=== PATIENT | female | born 1985 | race Caucasian/White ===

== ENCOUNTER 2016-06-07 08:41 | Outpatient (CLI) | payer OTHER | END 2016-06-07 20:04 | disposition home or self-care (01) | LOC: SDS 08:41 | PROVIDERS: ATTEND Internal Medicine | DX: S99.912A Unspecified injury of left ankle, initial encounter (principal); X58.XXXA Exposure to other specified factors, initial encounter; Y93.89 Activity, other specified; Y92.89 Other specified places as the place of occurrence of the external cause; Y99.8 Other external cause status ==

== ENCOUNTER 2017-03-14 09:51 | Outpatient (CLI) | payer OTHER ==
[2017-03-14 10:39] LABS: BASOPHILS % (AUTO) 0.4 % (0.0-2.0); EOSINOPHILS # (AUTO) 0.1 K/uL (0.0-0.4); EOSINOPHILS % (AUTO) 1.6 % (0.0-4.0); HEMATOCRIT 42.9 % (36-48); LYMPHOCYTES # (AUTO) 1.7 K/uL (1.0-5.5); LYMPHOCYTES % (AUTO) 26.6 % (20.5-51.5); MEAN CORPUSCULAR HEMOGLOBIN 29 pg (27-31); MEAN CORPUSCULAR HGB CONC 33 % (32-36); MEAN CORPUSCULAR VOLUME 88 fL (79.0-98.0); MONOCYTES # (AUTO) 0.3 K/uL (0.0-1.0); MONOCYTES % (AUTO) 4.9 % (1.7-9.3); NEUTROPHILS # (AUTO) 4.2 K/uL (1.8-7.7); NEUTROPHILS % (AUTO) 66.5 % (40.0-70.0); PLATELET COUNT (AUTO) 460 K/uL (130-430); RED CELL DISTRIBUTION WIDTH 11.8 % (9.0-15.0); WHITE BLOOD COUNT (AUTO) 6.3 K/uL (4.8-10.8)
[2017-03-14 10:51] LABS: INR 0.9 (0.8-1.2); PROTHROMBIN TIME 9.5 SECS (9.5-12.5)
[2017-03-14 11:03] LABS: CALCIUM 9.8 mg/dL (8.4-11.0); CREATININE 0.46 mg/dL (0.55-1.30); POTASSIUM 3.5 mmol/L (3.5-5.1); TOTAL BILIRUBIN 0.7 mg/dL (0.0-1.0)
== END 2017-03-14 20:19 | disposition home or self-care (01) ==
LOC: SUS 09:51
PROVIDERS: ATTEND Internal Medicine
DX: N93.9 Abnormal uterine and vaginal bleeding, unspecified (principal); R93.8 Abnormal findings on diagnostic imaging of other specified body structures
CPT/HCPCS: 36415; 76830-TC; 76857; 80053; 84703; 85025; 85610-TC

== ENCOUNTER 2017-09-29 08:32 | Outpatient (CLI) | payer OTHER ==
[2017-09-29 09:17] LABS: BILIRUBIN,URINE NEGATIVE (NEGATIVE); BLOOD, URINE 2+ (NEGATIVE); CLARITY/URINE CLEAR (CLEAR); COLOR,URINE YELLOW (YELLOW); GLUCOSE,URINE NEGATIVE (NEGATIVE); KETONES,URINE NEGATIVE (NEGATIVE); LEUKOCYTE ESTERASE ,URINE TRACE (NEGATIVE); NITRITE, URINE NEGATIVE (NEGATIVE); PH,URINE 5.5 (5.0-8.0); PROTEIN URINE NEGATIVE (NEGATIVE); UROBILINOGEN,URINE 0.2 (0.2-1.0)
[2017-09-29 09:24] LABS: CALCIUM 8.9 mg/dL (8.4-11.0); CREATININE 0.67 mg/dL (0.55-1.30); POTASSIUM 3.9 mmol/L (3.5-5.1)
[2017-09-29 09:30] LABS: BASOPHILS % (AUTO) 0.6 % (0.0-2.0); EOSINOPHILS # (AUTO) 0.2 K/uL (0.0-0.4); EOSINOPHILS % (AUTO) 2.4 % (0.0-4.0); HEMATOCRIT 40.3 % (36-48); HEMOGLOBIN 13.3 g/dL (12.0-16.0); MEAN CORPUSCULAR HEMOGLOBIN 29 pg (27-31); MEAN CORPUSCULAR HGB CONC 33 % (32-36); MEAN CORPUSCULAR VOLUME 87 fL (79.0-98.0); MONOCYTES # (AUTO) 0.4 K/uL (0.0-1.0); MONOCYTES % (AUTO) 5.8 % (1.7-9.3); NEUTROPHILS # (AUTO) 5.1 K/uL (1.8-7.7); NEUTROPHILS % (AUTO) 65.2 % (40.0-70.0); PLATELET COUNT (AUTO) 451 K/uL (130-430); RED BLOOD CELL COUNT(AUTO) 4.67 MIL/uL (4.2-6.2); WHITE BLOOD COUNT (AUTO) 7.7 K/uL (4.8-10.8)
[2017-09-29 09:38] LABS: ALBUMIN 3.6 g/dL (3.4-4.8); THYROID STIMULATING HORMONE 1.31 uIu/mL (0.34-4.82); TOTAL BILIRUBIN 0.6 mg/dL (0.0-1.0)
[2017-09-29 09:40] LABS: BACTERIA,URINE MODERATE /HPF (None Seen)
[2017-09-29 09:41] LABS: MUCUS,URINE 1+ /LPF (None Seen); YEAST,URINE None Seen /HPF (None Seen)
[2017-09-30 08:11] LABS: HEMOGLOBIN A1C 5.4 % (4.8-5.6)
== END 2017-09-29 19:40 | disposition home or self-care (01) ==
LOC: SLB 08:32
PROVIDERS: ATTEND Obstetrics & Gynecology
DX: Z00.00 Encounter for general adult medical examination without abnormal findings (principal)
CPT/HCPCS: 36415; 80053; 80061; 81000-TC; 82306; 82607; 83036; 84443-TC; 84702-TC; 85025; 87086

== ENCOUNTER 2017-10-02 08:19 | Outpatient (CLI) | payer OTHER ==
[2017-10-03 08:10] LABS: HEPATITIS A AB, IgM Negative (Negative); HEPATITIS B CORE AB, IgM Negative (Negative); HEPATITIS B SURFACE AG Negative (Negative)
== END 2017-10-02 20:42 | disposition home or self-care (01) ==
LOC: SUS 08:19
PROVIDERS: ATTEND Internal Medicine
DX: R16.0 Hepatomegaly, not elsewhere classified (principal)
CPT/HCPCS: 36415; 76700-TC; 80074

== ENCOUNTER 2019-08-09 00:50 | Emergency (ER) | payer OTHER ==
[~2019-08-09] VITALS: Ht 170.2 cm; Wt 99.3 kg
[2019-08-09 00:59] VITALS: BP_SYST 141
[2019-08-09] MEDS ORDERED: MECLIZINE HCL 25 MG TABLET (ANITVERT) PO ONE (02:00)
[2019-08-09 03:31] LABS: BASOPHILS % (AUTO) 0.2 % (0.0-2.0); EOSINOPHILS % (AUTO) 0.3 % (0.0-4.0); HEMATOCRIT 40.4 % (36-48); HEMOGLOBIN 13.3 g/dL (12.0-16.0); LYMPHOCYTES # (AUTO) 1.5 K/uL (1.0-5.5); LYMPHOCYTES % (AUTO) 15.9 % (20.5-51.5); MEAN CORPUSCULAR HEMOGLOBIN 28 pg (27-31); MEAN CORPUSCULAR HGB CONC 33 % (32-36); MEAN CORPUSCULAR VOLUME 84 fL (79.0-98.0); MONOCYTES # (AUTO) 0.4 K/uL (0.0-1.0); MONOCYTES % (AUTO) 4.3 % (1.7-9.3); NEUTROPHILS # (AUTO) 7.5 K/uL (1.8-7.7); NEUTROPHILS % (AUTO) 79.3 % (40.0-70.0); PLATELET COUNT (AUTO) 455 K/uL (130-430); RED CELL DISTRIBUTION WIDTH 13.4 % (9.0-15.0); WHITE BLOOD COUNT (AUTO) 9.4 K/uL (4.8-10.8)
[2019-08-09 03:37] LABS: CALCIUM 8.9 mg/dL (8.4-11.0); CREATININE 0.74 mg/dL (0.55-1.30); POTASSIUM 3.8 mmol/L (3.5-5.1)
[2019-08-09 03:48] LABS: TOTAL BILIRUBIN 0.3 mg/dL (0.0-1.0)
[2019-08-09 04:11] VITALS: BP_SYST 138
== END 2019-08-09 04:11 | disposition home or self-care (01) ==
LOC: SED 00:50
DX: R55 Syncope and collapse (principal)
CPT/HCPCS: 36415; 80053; 84702; 85025; 93005; 99284; J8597

== ENCOUNTER 2019-10-11 10:02 | Outpatient (CLI) | payer OTHER ==
--- NOTE | 2019-10-14 08:23 | NUR ---
Patient was called by [facility] to notify her COVID-19 "Detected" results and instructed to follow the Home Isolation Instructions. Patient verbalizes understanding.
== END 2019-10-12 19:06 | disposition home or self-care (01) ==
LOC: SLB 10:02
PROVIDERS: ATTEND Internal Medicine
DX: U07.1 COVID-19 (principal)
CPT/HCPCS: U0003-CS

== ENCOUNTER 2019-10-23 13:39 | Outpatient (CLI) | payer OTHER, SELFPAY ==
--- NOTE | 2019-10-25 10:37 | NUR ---
Covid results Patient called to request covid results- ID [id number]- results are positive, pt verbalized complete understanding.
== END 2019-10-23 15:41 | disposition home or self-care (01) ==
LOC: SLB 13:39
PROVIDERS: ATTEND Internal Medicine
DX: Z20.828 Contact with and (suspected) exposure to other viral communicable diseases (principal)
CPT/HCPCS: C9803; U0003

== ENCOUNTER 2020-01-22 09:13 | Outpatient (CLI) | payer OTHER ==
[2020-01-22 10:07] LABS: BASOPHILS # (AUTO) 0.1 K/uL (0.0-0.2); BASOPHILS % (AUTO) 0.5 % (0.0-2.0); EOSINOPHILS # (AUTO) 0.2 K/uL (0.0-0.4); EOSINOPHILS % (AUTO) 1.5 % (0.0-4.0); HEMATOCRIT 40.3 % (36-48); LYMPHOCYTES # (AUTO) 1.5 K/uL (1.0-5.5); LYMPHOCYTES % (AUTO) 13.3 % (20.5-51.5); MEAN CORPUSCULAR HEMOGLOBIN 27 pg (27-31); MEAN CORPUSCULAR HGB CONC 32 % (32-36); MEAN CORPUSCULAR VOLUME 83 fL (79.0-98.0); MONOCYTES # (AUTO) 0.5 K/uL (0.0-1.0); MONOCYTES % (AUTO) 4.1 % (1.7-9.3); NEUTROPHILS # (AUTO) 9.3 K/uL (1.8-7.7); NEUTROPHILS % (AUTO) 80.6 % (40.0-70.0); PLATELET COUNT (AUTO) 442 K/uL (130-430); RED BLOOD CELL COUNT(AUTO) 4.84 MIL/uL (4.2-6.2); RED CELL DISTRIBUTION WIDTH 15.4 % (9.0-15.0); WHITE BLOOD COUNT (AUTO) 11.5 K/uL (4.8-10.8)
[2020-01-22 10:52] LABS: ALBUMIN 3.4 g/dL (3.4-4.8); CALCIUM 9.1 mg/dL (8.4-11.0); CREATININE 0.61 mg/dL (0.55-1.30); TOTAL BILIRUBIN 0.5 mg/dL (0.0-1.0)
[2020-01-22 10:53] LABS: POTASSIUM 3.9 mmol/L (3.5-5.1)
[2020-01-22 10:55] LABS: THYROID STIMULATING HORMONE 1.27 uIu/mL (0.36-3.74)
== END 2020-01-22 21:17 | disposition home or self-care (01) ==
LOC: SLB 09:13
PROVIDERS: ATTEND Internal Medicine
DX: E78.5 Hyperlipidemia, unspecified (principal)
CPT/HCPCS: 36415; 80053; 84443-TC; 84703; 85025

== ENCOUNTER 2020-08-11 12:58 | Outpatient (CLI) | payer OTHER ==
[2020-08-11 13:38] LABS: BASOPHILS % (AUTO) 0.3 % (0.0-2.0); EOSINOPHILS # (AUTO) 0.1 K/uL (0.0-0.4); EOSINOPHILS % (AUTO) 1.6 % (0.0-4.0); HEMATOCRIT 41.7 % (36-48); HEMOGLOBIN 13.9 g/dL (12.0-16.0); LYMPHOCYTES # (AUTO) 3.1 K/uL (1.0-5.5); LYMPHOCYTES % (AUTO) 43.6 % (20.5-51.5); MEAN CORPUSCULAR HEMOGLOBIN 28 pg (27-31); MEAN CORPUSCULAR HGB CONC 33 % (32-36); MEAN CORPUSCULAR VOLUME 84 fL (79.0-98.0); MONOCYTES # (AUTO) 0.4 K/uL (0.0-1.0); NEUTROPHILS # (AUTO) 3.5 K/uL (1.8-7.7); NEUTROPHILS % (AUTO) 48.5 % (40.0-70.0); PLATELET COUNT (AUTO) 389 K/uL (130-430); RED BLOOD CELL COUNT(AUTO) 4.98 MIL/uL (4.2-6.2); RED CELL DISTRIBUTION WIDTH 13.9 % (9.0-15.0); WHITE BLOOD COUNT (AUTO) 7.2 K/uL (4.8-10.8)
[2020-08-11 13:52] LABS: ALBUMIN 3.7 g/dL (3.4-4.8); CALCIUM 9.1 mg/dL (8.4-11.0); CREATININE 0.88 mg/dL (0.55-1.30); POTASSIUM 3.8 mmol/L (3.5-5.1); TOTAL BILIRUBIN 0.8 mg/dL (0.0-1.0)
== END 2020-08-11 14:17 | disposition home or self-care (01) ==
LOC: SLB 12:58
PROVIDERS: ATTEND Internal Medicine
DX: R10.9 Unspecified abdominal pain (principal)
CPT/HCPCS: 36415; 80053; 83690; 84703; 85025; 86677

== ENCOUNTER 2020-10-09 13:47 | Outpatient (CLI) | payer OTHER ==
[2020-10-10 08:06] LABS: ESTRADIOL 14.4 pg/mL (.); FOLLICLE STIMULATION HORMONE 6.3 mIU/mL (.)
== END 2020-10-09 20:07 | disposition home or self-care (01) ==
LOC: SLB 13:47
PROVIDERS: ATTEND Specialist
DX: N92.6 Irregular menstruation, unspecified (principal)
CPT/HCPCS: 36415; 82670; 83001

== ENCOUNTER 2020-10-13 08:46 | Outpatient (CLI) | payer OTHER ==
[2020-10-14 05:07] LABS: DEHYDROEPIANDROSTERONE SULFATE 72.7 ug/dL (57.3-279.2); FOLLICLE STIMULATION HORMONE 5.6 mIU/mL (.)
[2020-10-14 10:58] LABS: INSULIN 26.2 uIU/mL (2.6-24.9)
== END 2020-10-13 21:11 | disposition home or self-care (01) ==
LOC: SLB 08:46
PROVIDERS: ATTEND Internal Medicine
DX: N92.6 Irregular menstruation, unspecified (principal)
CPT/HCPCS: 36415; 82627; 83001; 83002; 83525; 84146; 84443

== ENCOUNTER 2022-03-17 09:28 | Outpatient (CLI) | payer OTHER ==
[2022-03-18 08:07] LABS: ESTRADIOL 30.9 pg/mL (.); FOLLICLE STIMULATION HORMONE 5.1 mIU/mL (.)
== END 2022-03-17 21:22 | disposition home or self-care (01) ==
LOC: SLB 09:28
PROVIDERS: ATTEND Internal Medicine
DX: N92.6 Irregular menstruation, unspecified (principal)
CPT/HCPCS: 36415; 82670; 83001

== ENCOUNTER 2022-03-21 09:30 | Outpatient (CLI) | payer OTHER ==
[2022-03-22 12:06] LABS: ESTRADIOL 50.2 pg/mL (.); FOLLICLE STIMULATION HORMONE 6.4 mIU/mL (.); LUETENIZING HORMONE 9.5 mIU/mL (.); PROLACTIN 17.5 ng/mL (4.8-23.3)
== END 2022-03-21 18:40 | disposition home or self-care (01) ==
LOC: SLB 09:30
PROVIDERS: ATTEND Specialist
DX: N92.6 Irregular menstruation, unspecified (principal)
CPT/HCPCS: 36415; 82627; 82670; 83001; 83002; 83036; 83525; 84146; 84443

== ENCOUNTER 2022-03-23 12:42 | Outpatient (CLI) | payer OTHER | END 2022-03-23 19:11 | disposition home or self-care (01) | LOC: SRD 12:42 | PROVIDERS: ATTEND Specialist | DX: N92.6 Irregular menstruation, unspecified (principal) | CPT/HCPCS: 74740; 58340; Q9967 ==

== ENCOUNTER 2022-05-13 12:48 | Outpatient (CLI) | payer OTHER | END 2022-05-13 18:37 | disposition home or self-care (01) | LOC: SLB 12:48 | PROVIDERS: ATTEND Specialist | DX: N92.1 Excessive and frequent menstruation with irregular cycle (principal) | CPT/HCPCS: 36415; 84702 ==

== ENCOUNTER 2022-07-26 08:42 | Outpatient (CLI) | payer OTHER | END 2022-07-26 19:11 | disposition home or self-care (01) | LOC: SLB 08:42 | PROVIDERS: ATTEND Specialist | DX: N92.6 Irregular menstruation, unspecified (principal) | CPT/HCPCS: 36415; 83525 ==